=== PATIENT | male | born 1970 | race Caucasian/White ===

== ENCOUNTER 2019-02-26 23:28 | Emergency (ER) | payer BC ==
[2019-02-26] MEDS ORDERED: ONDANSETRON HCL IV 4 MG/2 ML VIAL IVP ONE (23:36)
[2019-02-26] MEDS ORDERED: KETOROLAC 30 MG/ML VIAL IVP ONE (23:36)
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
[2019-02-26] MEDS ORDERED: 0.9 % SODIUM CHLORIDE 1000ML 1,000 ML IV SCH (23:45)
[2019-02-26 23:51] LABS: ABSOLUTE NEUTROPHIL COUNT 5.87; BASO % 0.2 % (0-6); EOS % 0.1 % (0-6); GRAN % 67.3 % (47-80); HEMATOCRIT 42.9 % (42.0-52.0); HEMOGLOBIN 14.8 gm/dl (14.0-18.0); LYMPH % 21.6 % (16-45); MEAN CELL VOLUME 87.4 fl (81-97); MEAN CORPUSCULAR HEMOGLOBIN 30.1 pg (27-33); MEAN CORPUSCULAR HGB CONC 34.5 g/dl (32-36); MEAN PLATELET VOLUME 9.4 fl (7.4-10.4); MONO % 10.8 % (0-9); PLATELET COUNT 315 K/uL (130-400); RED BLOOD COUNT 4.91 M/uL (4.40-5.70); RED CELL DISTRIBUTION WIDTH 13.5 % (11.5-14.5); WHITE BLOOD COUNT W/O DIFF 8.7 K/uL (4.2-12.2)
[2019-02-27 00:02] LABS: BLOOD UREA NITROGEN 6 mg/dL (6-20); CREATININE 0.9 mg/dL (0.7-1.2); EST GLOMERULAR FILTRATION RATE > 60 mL/min
[2019-02-27 00:03] LABS: TOTAL PROTEIN 7.5 g/dL (6.6-8.7)
[2019-02-27 00:05] LABS: GLUCOSE,RANDOM 132 mg/dL (74-109)
[2019-02-27 00:07] LABS: ALT/SGPT 10 U/L (<41)
[2019-02-27 00:08] LABS: ALB/GLOB RATIO 1.3 (1.1-1.8); ALBUMIN 4.2 g/dL (4.0-5.0); ALKALINE PHOSPHATASE 131 U/L (40-129); AST/SGOT 11 U/L (10.0-50.0)
[2019-02-27 00:28] LABS: URINE APPEARANCE CLEAR; URINE BILIRUBIN NEGATIVE (NEGATIVE); URINE BLOOD SMALL (NEGATIVE); URINE COLOR YELLOW; URINE GLUCOSE (UA) NEGATIVE (NEGATIVE); URINE KETONE NEGATIVE (NEGATIVE); URINE LEUKOCYTE ESTERASE NEGATIVE (NEGATIVE); URINE NITRITE NEGATIVE (NEGATIVE); URINE PROTEIN NEGATIVE (NEGATIVE); URINE UROBILINOGEN 0.2 E.U./dL (0.20 - 1.00)
[2019-02-27 00:31] LABS: URINE BACTERIA NONE SEEN; URINE EPITHELIAL CELLS 0 - 2 (FEW); URINE WBC 0 - 2 (0-2/hpf)
--- NOTE | 2019-03-02 13:16 | CT SCAN REPORT ---
EXAM: CT OF THE ABDOMEN AND PELVIS WITHOUT CONTRAST HISTORY: LEFT FLANK PAIN FOR ONE DAY. TECHNIQUE: Routine helical CT examination of the abdomen and pelvis was performed without oral or intravenous contrast administration. Lack of oral and IV contrast utilization limits evaluation of the bowel and solid viscera respectively. Comparison: None. FINDINGS: There is minimal linear scarring versus atelectasis within the anterior aspects of each lung base. The visualized lung bases are otherwise clear. No pleural or pericardial effusion. The heart does not appear enlarged. The liver, pancreas, adrenal glands, and kidneys are normal in appearance. There is no evidence of obstructive uropathy. A few punctate calcifications consistent with granulomata are scattered within the otherwise normal appearing spleen. The gallbladder is unremarkable and no biliary ductal dilatation is demonstrated. No intraabdominal nor retroperitoneal lymphadenopathy. There is minor calcified atherosclerotic plaque scattered in the abdominal aorta and iliac arteries without aneurysmal dilatation. No suspicious pelvic mass, lymphadenopathy, or free pelvic fluid. There is a small peripherally calcified nodule adjacent to the left aspect of the urinary bladder dome and the inferior aspect of the sigmoid colon. This measures 6 mm in diameter. This has a chronic benign appearance. No intrinsic urinary bladder abnormality is seen. No gross bowel dilatation nor bowel wall thickening. There is a fatty ileocecal valve. The appendix is visualized and normal in appearance. A few nonenlarged inguinal and common femoral lymph nodes are noted bilaterally. The abdominal wall is intact. No lytic or blastic bone lesion. Mild degenerative disk/end plate changes are scattered throughout the lumbar spine. IMPRESSION: NO CT EVIDENCE OF AN ACUTE INTRAABDOMINAL NOR INTRAPELVIC PROCESS. JOB NUMBER: [id number] MTDD
== END 2019-02-27 00:50 | disposition home or self-care (01) ==
LOC: ER 23:28
DX: R10.9 Unspecified abdominal pain (principal); M54.5 Low back pain; Z87.891 Personal history of nicotine dependence
CPT/HCPCS: 99284 ×2; 96374; 96375; 85025; 80053; 81001; 74176; J1885; J2405; J7030

== ENCOUNTER 2019-06-27 18:33 | Emergency (ER) | payer BC ==
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
[2019-06-27] MEDS ORDERED: 0.9 % SODIUM CHLORIDE 1000ML 1,000 ML IV SCH (18:45)
[2019-06-27 18:48] LABS: BASO % 0.1 % (0-6); EOS % 0.1 % (0-6); GRAN % 73.5 % (47-80); HEMATOCRIT 45.5 % (42.0-52.0); HEMOGLOBIN 15.4 gm/dl (14.0-18.0); LYMPH % 18.3 % (16-45); MEAN CELL VOLUME 87.2 fl (81-97); MEAN CORPUSCULAR HEMOGLOBIN 29.5 pg (27-33); MEAN CORPUSCULAR HGB CONC 33.8 g/dl (32-36); MEAN PLATELET VOLUME 8.8 fl (7.4-10.4); PLATELET COUNT 449 K/uL (130-400); RED BLOOD COUNT 5.22 M/uL (4.40-5.70); RED CELL DISTRIBUTION WIDTH 13.6 % (11.5-14.5); WHITE BLOOD COUNT W/O DIFF 12.9 K/uL (4.2-12.2)
[2019-06-27 19:37] LABS: BLOOD UREA NITROGEN 10 mg/dL (6-20); CREATININE 0.7 mg/dL (0.7-1.2); EST GLOMERULAR FILTRATION RATE > 60 mL/min
[2019-06-27 19:39] LABS: GLUCOSE,RANDOM 112 mg/dL (74-109)
[2019-06-27 19:40] LABS: ALCOHOL < 0.010 g/dL (0-0.010)
[2019-06-27 19:42] LABS: ALB/GLOB RATIO 1.2 (1.1-1.8); ALBUMIN 4.3 g/dL (4.0-5.0); ALT/SGPT 17 U/L (<41); AST/SGOT 15 U/L (10.0-50.0)
[2019-06-27 19:53] LABS: THYROID STIMULATING HORMONE 0.04 uIU/mL (0.270-4.20)
[2019-06-27 22:17] LABS: ALKALINE PHOSPHATASE 125 U/L (40-129)
== END 2019-06-27 20:22 | disposition home or self-care (01) ==
LOC: ER 18:33
DX: R00.0 Tachycardia, unspecified (principal); E06.3 Autoimmune thyroiditis; I10 Essential (primary) hypertension; Z87.891 Personal history of nicotine dependence
CPT/HCPCS: 99284 ×2; 85025; 80053; 84443; 84484; 85379; 93005; 93010; G0480; 80320; J7030